=== PATIENT | male | born 1935 | race Caucasian/White ===

== ENCOUNTER 2023-10-04 06:41 | Observation (INO) ==
--- NOTE | 2023-09-30 09:52 | Anesthesiology Consultation ---
Date of Service September 30, 2023 Assessment & Plan (1) Encounter for pre-operative examination: Infectious disease screening: Per assessment on 09/30/23: No known recent infectious disease contacts or current infectious disease symptoms. Chart Review Chart Review: Acceptable Risk for Surgery and Patient NOT seen in Pre Admission Testing History Surgery Operation Date: 10/04/23 08:30 Proposed Procedures p TURP (Transurethral Resection Prostate) - Emil Estrada MD Height/Weight Height: 5 ft 8 in Weight: 80.286 kg Allergies Allergy/AdvReac Type Severity Reaction Status Date / Time morphine AdvReac Severe stopped Verified 09/30/23 08:04 breathing Medications Home Medications Medication Instructions Recorded Confirmed Last Taken doxycycline hyclate 50 mg capsule 50 mg PO BID 09/07/23 09/30/23 Unknown Lactobacil.acidophilus-Bifido.animalis 1 cap PO BID 09/30/23 09/30/23 Unknown 5 billion cell sprinkle capsule (Probiotic) cholecalciferol (vitamin D3) 25 25 mcg PO BID 09/30/23 09/30/23 Unknown mcg (1,000 unit) tablet (Vitamin D3) cyanocobalamin (vitamin B-12) 500 500 mcg PO DAILY 09/30/23 09/30/23 Unknown mcg tablet levothyroxine 88 mcg tablet 88 mcg PO QAM 09/30/23 09/30/23 Unknown omeprazole 20 mg tablet,delayed 20 mg PO QAM 09/30/23 09/30/23 Unknown release solifenacin 5 mg tablet (Vesicare) 5 mg PO QAM 09/30/23 09/30/23 Unknown vitamin K2 100 mcg capsule 100 mcg PO DAILY 09/30/23 09/30/23 Unknown Past Medical History Medical History BPH (benign prostatic hyperplasia) GERD (gastroesophageal reflux disease) History of COVID-08 Feb 2023 History of kidney stones passed on own Hx of Lyme disease 20+ years ago Occasional symptom flare, current doxy Hypothyroidism Sleep apnea no device Past Surgical History Surgical History History of colonoscopy History of esophagogastroduodenoscopy (EGD) History of tonsillectomy History of tooth extraction Hx of inguinal hernia repair x5 Hx of non-cataract eye surgery Hx of transurethral resection of prostate Social History Smoking Status: Former smoker Do You Dip or Chew Tobacco: No Smoking End Date: 50 yrs ago Hx Alcohol Use: Yes Alcohol type: beer and hard liquor alcohol intake frequency: a few times a month Hx Substance Use: No substance use type: does not use Testing Laboratory Results 09/29/23 WBC 6.93 H/H 14.6/42.7 PLATELETS 232 SODIUM 134 POTASSIUM 4.0 CHLORIDE 102 CO2 30.3 BUN 8.6 CREATININE 0.96 GLUCOSE 73 URINE CULTURE no growth (preliminary report) Electrocardiogram Date: 09/29/23 SR at 63bpm. Voltage criteria for LVH. Probably old inferior NH. No physical limitations or cardiopulmonary complaints noted per PAT RN phone i [facility] 09/30/23. Chest X-Ray Date: 06/25/23 Stable appearance without acute disease seen at this time. Echocardiogram Date: 11/16/21 EF~55%. Mild cLVH. Mild bowing of both mitral valve leaflets without bulmaro prolapse. Trace MR.
--- NOTE | 2023-10-04 07:14 | History & Physical Bridge Note ---
Date of Service October 04, 2023 History & Physical Bridge Note I have examined the patient, reviewed the History & Physical and in the interval since the performance of the History & Physical I have noted the following changes of clinical significance: no changes noted
[2023-10-04] MEDS: LACTATED RINGER'S 1,000 ML IV SCH (07:24)
[2023-10-04] MEDS ORDERED: LIDOCAINE 2% 2 ML VIAL/AMP(20MG/ML) INFIL ONE (07:45)
[2023-10-04] MEDS ORDERED: DEXAMETHASONE SOD INJ 4 MG/ML VIAL ONE (07:45)
[2023-10-04] MEDS ORDERED: ONDANSETRON INJ 2 MG/ML 2 ML VIAL ONE (07:46)
[2023-10-04] MEDS ORDERED: PROPOFOL IV EMULSION 10 MG/ML 20 ML VIAL IV ONE (07:46)
[2023-10-04] MEDS ORDERED: GLYCOPYRROLATE 0.2 MG/ML VIAL ONE (07:46)
[2023-10-04] MEDS ORDERED: LIDOCAINE 2% 20 MG/ML 5 ML SYR IV ONE (07:46)
[2023-10-04] MEDS ORDERED: fentaNYL citrate PF 100 MCG/2 ML VIAL ONE (07:47)
[2023-10-04] MEDS ORDERED: HYDROmorphone INJ 2 MG/ML SYR/VIAL IV PRN (08:04)
[2023-10-04] MEDS ORDERED: ePHEDrine sulfate 50 MG/ML AMP IV PRN (08:04)
[2023-10-04] MEDS ORDERED: fentaNYL citrate PF 100 MCG/2 ML VIAL IV PRN (08:04)
[2023-10-04] MEDS ORDERED: PROMETHAZINE HCL 6.25 MG in SODIUM CHLORIDE 0.9% 50 ML IV PRN (08:04)
[2023-10-04] MEDS ORDERED: ATROPINE SULFATE 0.1 MG/ML 10ML SYR IV PRN (08:04)
[2023-10-04] MEDS ORDERED: ONDANSETRON INJ 2 MG/ML 2 ML VIAL IV PRN (08:04)
[2023-10-04] MEDS: CIPROFLOXACIN / D5W 400 MG/200 ML BAG IV SCH (08:14)
--- NOTE | 2023-10-04 09:04 | Operative Report ---
PG Post Operative Report Pre & Post Diagnosis Operation Date: 10/04/23 08:15 Pre-Op Diagnosis: Benign Prostastic Hyperplasia with Lower Urinary Symptoms Post-Op Diagnosis: Benign Prostastic Hyperplasia with Lower Urinary Symptoms I identified the patient and participated in the time-out.: Yes Procedure Operation Date: 10/04/23 08:15 Actual Procedures p Transurethral Resection Prostate(Not Applicable) - Emil Estrada MD Surgeon Emil Estrada MD Media Services Director none Estimated Blood Loss 0 Findings Consistent with Post-Op Diagnosis Specimens Prostate chips for routine pathology Description of Procedure The patient was identified in the preoperative holding area, appropriate informed consents were reviewed and completed and the patient was transferred to the operative suite. 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 Inspection revealed a healthy-appearing urethra and prostate that is previously been resected but has significant residual tissue from the right lateral lobe and protruding into the intravesical space. Inspection of the bladder was unremarkable ureteral orifices were identified. Following my inspection I utilized a loop electrode to begin resecting the redundant tissue. I began with the right lateral lobe and ultimately resected the intravesical component. He had some redundant anterior tissue as well which was resected. All chips were evacuated from the bladder. Meticulous hemostasis was obtained. He was reversed of anesthesia after a Govea catheter was inserted. He there were no complications and he tolerated the procedure very well. I attest to the content of the Intraoperative Record and any orders documented therein. Any exceptions are noted below.
--- NOTE | 2023-10-04 09:39 | Anesthesiology Progress Note ---
Date of Service October 04, 2023 Anesthesia Post Procedure Vital Signs Vital Signs: Temp Pulse Resp BP Pulse Ox O2 Del Method O2 Flow Rate 10/04/23 09:20 72 19 142/88 H 99 Nasal Cannula 4 10/04/23 09:10 72 17 162/88 H 99 Nasal Cannula 4 10/04/23 09:04 36.4 C L 76 20 133/81 95 Nasal Cannula 4 10/04/23 07:14 36.4 C L 73 18 169/84 H 97 Room Air Transfer of Care Handoff Completed per policy Notes Mental Status: alert / awake / arousable and participated in evaluation Patient Amnestic to Procedure: Yes Nausea / Vomiting: adequately controlled Pain: adequately controlled Airway Patency, RR, SpO2: stable & adequate BP & HR: stable & adequate Hydration State: stable & adequate Anesthetic Complications: no major complications apparent
[2023-10-04] MEDS: SODIUM CHLORIDE 0.9% 1,000 ML IV SCH (11:12)
[2023-10-04] MEDS: PANTOprazole 40 MG TAB PO SCH (12:11)
[2023-10-04] MEDS: LEVOTHYROXINE SODIUM 88 MCG TABLET PO SCH (12:11)
[2023-10-04] MEDS: DOXYCYCLINE HYCLATE 50 MG CAP PO SCH (12:12)
[2023-10-04] MEDS: ACETAMINOPHEN 325 MG TAB PO PRN (17:16)
[2023-10-05 03:27] VITALS: TEMP 97.7
[2023-10-05 07:24] VITALS: BP 165/78; PULSE 68; RESP 16; O2SAT 96
--- NOTE | 2023-10-05 08:07 | Urology Progress Note ---
Date of Service October 05, 2023 Assessment & Plan (1) BPH (benign prostatic hypertrophy) with urinary obstruction: Plan: Patient POD #1 s/p TURP with Dr. Estrada Subjectively doing well Govea draining appropriately with clear urine, minimal pink tinge Plan for Govea removal this morning and monitor for void Tolerating diet No issues with pain Anticipate home later today Expected clinical course reviewed, all questions answered Admission and Anticipated Discharge Date Admission Date: October 04, 2023 Subjective Patient seen and examined at bedside. No acute issues overnight. Denies pain. Govea draining clear very minimally pink tinged urine. Denies nausea, vomiting, fever or chills. Review of Systems Constitutional: as per Subjective / HPI Genitourinary: + as per Subjective / HPI Physical Exam Constitutional: well developed and well nourished; no acute distress Respiratory: normal respiratory effort; no respiratory distress and no labored breathing Gastrointestinal (Abdomen): Inspection/Auscultation: abdomen normal to inspection Musculoskeletal: Head/Neck/Chest: normocephalic Neurologic: moves all extremities and awake Psychiatric: Orientation: alert and oriented x 3 Genitourinary: Govea draining clear very minimally pink tinged urine. Results & Data Vital Signs (Past 12 Hours) Vital Signs Temp Pulse Resp BP Pulse Ox O2 Del Method 10/05/23 07:22 36.5 C 68 16 165/78 H 96 Room Air 10/05/23 03:17 36.5 C 70 18 144/72 H 94 Room Air 10/04/23 23:27 36.6 C 72 18 144/76 H 95 Room Air PG Care Time/CCT Total # of Minutes Spent Total Time Spent with Patient: Total time spent is greater than 50% in coordination of care (as documented) at patient's floor/unit and/or counseling patient: Coding Level of Care Code None Diagnoses BPH (benign prostatic hypertrophy) with urinary obstruction N40.1; N13.8
--- NOTE | 2023-10-05 12:19 | Discharge Summary ---
Date of Service October 05, 2023 Admission HPI Per Admitting Provider Patient with BPH with urinary obstruction here for transurethral resection of prostate. Admission Exam Per Admitting Provider Constitutional well developed and well nourished Neck neck nontender Respiratory normal respiratory effort; no respiratory distress and does not use accessory muscles Cardiovascular Rate/Rhythm: regular rate Vessels: radial pulses present Extremities: no edema Gastrointestinal (Abdomen) Inspection/Auscultation: abdomen normal to inspection Percussion/Palpation: abdomen soft; abdomen nontender and no guarding Musculoskeletal Head/Neck/Chest: normocephalic and head atraumatic Extremities: extremities normal to inspection Skin no rashes and no lesions Trauma: no evidence of skin trauma Neurologic awake; not obtunded Speech / Cognition: normal speech Motor/Sensory: no tremor Psychiatric Orientation: alert and oriented x 3 Genitourinary no CVA tenderness Lymphatic no lymphadenopathy Principal Diagnosis BPH with urinary obstruction Discharge Exam Constitutional well developed and well nourished; no acute distress Respiratory normal respiratory effort; no respiratory distress and no labored breathing Gastrointestinal (Abdomen) Inspection/Auscultation: abdomen normal to inspection Musculoskeletal Head/Neck/Chest: normocephalic Neurologic moves all extremities and awake Psychiatric Orientation: alert and oriented x 3 Discharge Data Allergies Allergy/AdvReac Type Severity Reaction Status Date / Time morphine AdvReac Severe stopped Verified 10/04/23 07:09 breathing Procedures Performed Operation Date: 10/04/23 08:15 Actual Procedures p Transurethral Resection Prostate(Not Applicable) - Emil Estrada MD Hospital Course (1) BPH (benign prostatic hypertrophy) with urinary obstruction: Patient POD #1 s/p TURP with Dr. Estrada Subjectively doing well Govea draining appropriately with clear urine, minimal pink tinge Plan for Govea removal this morning and monitor for void Tolerating diet No issues with pain Anticipate home later today Expected clinical course reviewed, all questions answered Total Time Total Time Spent Total Time Spent (In Minutes): 29 Discharge Plan Discharge Items Patient Disposition: Home - Self-Care Reason For Visit: Benign Prostastic Hyperplasia with Lower Urinary Discharge Diagnosis: Benign prostatic hyperplasia with lower urinary tract symptoms Activity: Per Instructions section Lifting: No more than 25 pounds Bathing Comment: Okay to shower after discharge Sexual Activity: When tolerated Exercise/Sports: Gradually increase as tolerated Driving/Machine Use: Resume 1 day after discharge Non-emergency contact: Surgeon and Urologist Call non-emergency contact if: your pain is not controlled, you have a fever and your temperature is above 101 Follow-up/Referrals: Grisel Posadas CRNP [Primary Care Provider] - Diet: Regular Addtl Attending Provider Instructions: Please take all medications as prescribed and keep all follow-ups as scheduled. Please call our office at [phone] with any questions, concerns or need to reschedule appointments for any reason. We are happy to assist you. Tips for your recovery at home: Dont be alarmed by brownish or reddish blood or clots in your urine. This is a result of the procedure. This may occur off and on for weeks to months after the procedure but should continue to improve. Drink plenty of fluids during the day (enough to keep your urine very light colored). This will help keep a healthy flow of urine. Do not lift >25 lbs until your followup Avoid constipation. Please use a stool softener (Colace) for the first two weeks after your procedure If you go home with a catheter, please wash tubing where it enters your body twice daily with mild soap (Dove or Dial). Once your catheter is removed, expect some blood in your urine and some burning when you urinate. You should have an appointment to have this removed, if you do not please call our office to arrange. Pending Studies at Discharge: Yes (Pathology) Stand-Alone Forms: My [facility], Smoking Cessation Medications and DC Order Prescriptions: Continued doxycycline hyclate [Morgidox] 50 mg capsule 50 mg PO BID levothyroxine 88 mcg Tablet 88 mcg PO QAM cyanocobalamin (vitamin B-12) 500 mcg Tablet 500 mcg PO DAILY cholecalciferol (vitamin D3) [Vitamin D3] 25 mcg (1,000 unit) Tablet 25 mcg PO BID Probiotic 5 billion cell Capsule, Sprinkle 1 cap PO BID vitamin K2 100 mcg Capsule 100 mcg PO DAILY solifenacin [Vesicare] 5 mg tablet 5 mg PO QAM omeprazole 20 mg Tablet,Delayed Release (Dr/Ec) 20 mg PO QAM Discharge Orders: Discharge Order (Routine); Ordered 10/05/23 Ordered By: Saloni Parker/Other Patient Handouts: TURP Home Recovery Admission Data Admit Date/Time: 10/04/23 09:02 Attending Provider: Emil Estrada Admit Provider: Emil Estrada Primary Care Provider: Grisel Posadas Other Interventions: Discharge Summary Assessment (RN) Last Done: 10/05/23 12:24 Coding Level of Care Code 65179 IN/OBS DISCH 30 MIN/LESS Diagnoses BPH (benign prostatic hypertrophy) with urinary obstruction N40.1; N13.8
== END 2023-10-05 13:08 | disposition home or self-care (01) ==
LOC: ASU 06:41 → 3N 06:41
DX: E03.9 Hypothyroidism, unspecified; N13.8 Other obstructive and reflux uropathy; Z88.5 Allergy status to narcotic agent; Z87.891 Personal history of nicotine dependence; Z79.899 Other long term (current) drug therapy; Z79.2 Long term (current) use of antibiotics; G47.33 Obstructive sleep apnea (adult) (pediatric); C61 Malignant neoplasm of prostate; K21.9 Gastro-esophageal reflux disease without esophagitis; N40.1 Benign prostatic hyperplasia with lower urinary tract symptoms; Z79.890 Hormone replacement therapy